=== PATIENT | male | born 1955 | race Caucasian/White ===

== ENCOUNTER 2025-02-15 06:51 | Day surgery (SDC) | payer MEDICARE ==
[~2025-02-15] VITALS: Ht 170.2 cm; Wt 78.9 kg
[~2025-02-15 06:51] MED LIST: Metronidazole T45 GM TD; SILDENAFIL PO; VITAMIN D310 MC4
[2025-02-15] MEDS ORDERED: FLONASE ALLERG9.9 ML (07:07)
[2025-02-15] MEDS ORDERED: XYZAL5 MG (07:07)
[2025-02-15] MEDS ORDERED: propofoL 50 ML IV ONE (07:38)
[2025-02-15] MEDS ORDERED: Lactated Ringer's 1,000 ML IV ONE ×2 (07:38→07:49)
[2025-02-15 09:09] VITALS: BP 104/64
== END 2025-02-15 09:00 | disposition home or self-care (01) ==
LOC: ORSCSDS 06:51
PROVIDERS: Surgery
PROC: 0DBM8ZX Excision of Descending Colon, Via Natural or Artificial Opening Endoscopic, Diagnostic (ICD-10-PCS; principal; 2025-02-15 08:00)
PROC: 0DBL8ZX Excision of Transverse Colon, Via Natural or Artificial Opening Endoscopic, Diagnostic (ICD-10-PCS; principal; 2025-02-15 08:00)
DX: Z12.11 Encounter for screening for malignant neoplasm of colon (principal); D12.3 Benign neoplasm of transverse colon; K63.5 Polyp of colon; K57.30 Diverticulosis of large intestine without perforation or abscess without bleeding; E78.5 Hyperlipidemia, unspecified; Z87.891 Personal history of nicotine dependence; Z79.899 Other long term (current) drug therapy
CPT/HCPCS: 88305; J2704; J7120